=== PATIENT | male | born 1950 | race Caucasian/White ===

== ENCOUNTER 2021-06-01 12:51 | Inpatient (IN) | payer MEDICARE ==
[2021-05-31 09:43] VITALS: BMI 29.2
[~2021-06-01 12:51] MED LIST: HYDROmorphone 0.5 MG/0.5 ML SYRINGE IVP PRN; LIDOCAINE 1% (10MG/ML) FOR IV START INTRADERMA PRN; ONDANSETRON 4 MG/2 ML VIAL IVP ONE
[2021-06-01] MEDS: LACTATED RINGERS 1,000 ML IV SCH (13:50)
[2021-06-01 14:14] LABS: HGB 12.1 gm/dL (13.0-17.5); Hypochromasia Slight; MCH 30.8 pg (25.0-35.0); MCV 99.5 fL (80.0-100.0); Mean Platelet Volume 7.8; Platelet Count 179 k/uL (150-450); RBC 3.92 m/uL (4.30-5.90); WBC 6.5 k/uL (3.8-10.6)
[2021-06-01 14:43] LABS: Partial Thromboplastin Time 26.1 sec (22.0-30.0); Prothrombin Time 11.1 sec (9.0-12.0)
[2021-06-01] MEDS ORDERED: DEXTROSE 50% SYRINGE 50 ML IVP STA (20:01)
[2021-06-01] MEDS ORDERED: INSULIN REGULAR 100 UNIT/ML VIAL (IV) IV ONE (20:15)
[2021-06-01] MEDS: METOPROLOL TARTRATE 25 MG TAB PO SCH (21:01)
[2021-06-01] MEDS: traZODone HCL 50 MG TAB PO SCH (21:01)
--- NOTE | 2021-06-01 21:25 | P.HPOR ---
History of Present Illness H&P Date: 06/01/21 This patient is a 71- year old male with a past medical history of COPD, heart disease, hypertension who presented to [facility] today for a scheduled open reduction internal fixation of right bimalleolar ankle fracture. Patient was initially evaluated by Dr. Espinoza as an outpatient in the office. Surgical fixation was recommended for patient's right bimalleolar ankle fracture. Patient was placed into a bulky Raya splint and surgery was scheduled at a later date to allow for resolution of soft tissue swelling. Patient was evaluated by Dr. Tran on 05/26/21 and patient was medically cleared for surgery on that date. Upon presentation to the pre-operative area today, potassium was noted to be 6.0. Repeat potassium 5.8. Anesthesia recommended cancelling the procedure and admitting patient to the hospital for work-up of hyperkalemia. Patient has been admitted under the care of Dr. Espinoza, with an internal medicine has been consultation for hyperkalemia evaluation and treatment, as well as medical clearance prior to surgery. Patient was seen with Dr. Espinoza. Past Medical History Past Medical History: Hypertension Additional Past Medical History / Comment(s): "Heart problems, don't know what exactly." History of Any Multi-Drug Resistant Organisms: None Reported Past Surgical History: No Surgical Hx Reported Additional Past Surgical History / Comment(s): Aorta replacement 1997. Past Anesthesia/Blood Transfusion Reactions: No Reported Reaction, Motion Sickness Past Psychological History: No Psychological Hx Reported Smoking Status: Former smoker Past Alcohol Use History: None Reported Additional Past Alcohol Use History / Comment(s): Quit smoking 08/11, smoked 30+ yrs, 1ppd. Past Drug Use History: None Reported - Past Family History Mother Additional Family Medical History / Comment(s): ? lymph node cancer, not confirmed. Medications and Allergies Home Medications Medication Instructions Recorded Confirmed Type Aspirin 0.5 tab PO BID 05/31/21 05/31/21 History Famotidine [Pepcid] 20 mg PO QAM 05/31/21 05/31/21 History Furosemide [Lasix] 40 mg PO BID 05/31/21 05/31/21 History HYDROcodone/APAP 5-325MG [[place] 1 tab PO Q6HR PRN 05/31/21 05/31/21 History 5-325] Lisinopril-Hctz 20-25 mg 1 tab PO QAM 05/31/21 05/31/21 History [Zestoretic 20-25] Metoprolol 25 mg PO QAM 05/31/21 05/31/21 History Spironolactone [Aldactone] 50 mg PO DAILY 05/31/21 05/31/21 History hydroCHLOROthiazide 20 mg PO BID 05/31/21 05/31/21 History traZODone HCL 50 mg PO HS 05/31/21 05/31/21 History Allergies Allergy/AdvReac Type Severity Reaction Status Date / Time Penicillins Allergy Unknown Verified 06/01/21 13:29 venom-honey bee Allergy Anaphylaxis Verified 06/01/21 13:29 [bee venom (honey bee)] Physical Examination On examination in the pre-operative area, patient is sitting on the gurney in no apparent distress. He is alert and orientated x3. A focused examination of the right ankle is conducted. A loose bulky Raya splint was removed. On inspection of the right ankle, there are healed fracture blisters and resolved swelling. Motor and sensory function intact. The right lower extremity is warm and well perfused. Results - Labs Labs: Abnormal Lab Results - Last 24 Hours (Table) 06/01/21 06/01/21 06/01/21 Range/Units 13:49 13:49 14:44 RBC 3.92 L (4.30-5.90) m/uL Hgb 12.1 L (13.0-17.5) gm/dL Potassium 6.0 H 5.8 H (3.5-5.1) mmol/L BUN 49 H (9-20) mg/dL H & H 06/01/21 Range/Units 13:49 Hgb 12.1 L (13.0-17.5) gm/dL Hct 39.0 (39.0-53.0) % Coagulation 06/01/21 Range/Units 13:49 INR 1.0 (<1.2) Result Diagrams: 06/01/21 13:49 06/01/21 14:44 Assessment and Plan Assessment: Right ankle bimalleolar ankle fracture. Hyperkalemia. Plan: - Patient is admitted to the hospital this evening from the pre-operative area for an internal medicine consultation for hyperkalemia and medical clearance. If medically cleared, we will plan for right ankle open reduction and internal fi xation tomorrow afternoon. Patient is agreeable to this plan. - Patient will be made NPO at midnight. - A new bulky Raya splint was placed bedside this evening. Patient should remain strictly non-weight bearing right lower extremity. - We will plan for surgery tomorrow, pending medical clearance.
[2021-06-01] MEDS ORDERED: HYDROmorphone 0.5 MG/0.5 ML SYRINGE IVP STA (21:48)
--- NOTE | 2021-06-02 02:28 | P.CONS ---
History of Present Illness - Reason for Consult Consult date: 06/01/21 medical pre op eval Requesting physician: Jareth Espinoza - Chief Complaint reduction internal fixation of right bimalleolar ankle fracture. - History of Present Illness 71-year-old male with atrial fibrillation, COPD on 3 L oxygen, hypertension, valvular heart disease, Patient comes in for scheduled reduction internal fixation of right bimalleolar ankle fracture. Patient sustained an injury after tripping over his dog about 3 weeks ago. He was placed in a splint and scheduled for later surgery. Patient was cleared by his primary care physician Dr. Lopez as an outpatient however upon arrival to the hospital he was found to have hyperkalemia and surgery was canceled. Currently patient sitting at the edge of the bed comfortable denies any acute pain denies any chest pain or trouble breathing denies any fevers or chills denies any nausea vomiting abdominal pain denies any GI bleeding. He denies any recent hospitalization denies any recent symptoms suggestive of congestive heart failure or heart attack denies any palpitations or arrhythmia he has history of A. fib. Patient was active prior to surgery with heavy outdoor chores involving cutting wood and able to climb stairs with no limitations. Review of Systems Pertinent positives as noted in HPI. All other systems were reviewed and are negative Past Medical History Past Medical History: Atrial Fibrillation, COPD, Hypertension Additional Past Medical History / Comment(s): History of aortic dissection status post repair 1997 history of valvular heart disease. History of Any Multi-Drug Resistant Organisms: None Reported Past Surgical History: No Surgical Hx Reported Additional Past Surgical History / Comment(s): Aorta replacement 1997. Past Anesthesia/Blood Transfusion Reactions: No Reported Reaction, Motion Sickness Past Psychological History: No Psychological Hx Reported Smoking Status: Former smoker Past Alcohol Use History: None Reported Additional Past Alcohol Use History / Comment(s): Quit smoking 08/11, smoked 30+ yrs, 1ppd. Past Drug Use History: None Reported - Past Family History Mother Additional Family Medical History / Comment(s): ? lymph node cancer, not confirmed. Medications and Allergies Home Medications Medication Instructions Recorded Confirmed Type Aspirin 0.5 tab PO BID 05/31/21 05/31/21 History Famotidine [Pepcid] 20 mg PO QAM 05/31/21 05/31/21 History Furosemide [Lasix] 40 mg PO BID 05/31/21 05/31/21 History HYDROcodone/APAP 5-325MG [[place] 1 tab PO Q6HR PRN 05/31/21 05/31/21 History 5-325] Lisinopril-Hctz 20-25 mg 1 tab PO QAM 05/31/21 05/31/21 History [Zestoretic 20-25] Metoprolol 25 mg PO QAM 05/31/21 05/31/21 History Spironolactone [Aldactone] 50 mg PO DAILY 05/31/21 05/31/21 History hydroCHLOROthiazide 20 mg PO BID 05/31/21 05/31/21 History traZODone HCL 50 mg PO HS 05/31/21 05/31/21 History Allergies Allergy/AdvReac Type Severity Reaction Status Date / Time Penicillins Allergy Unknown Verified 06/01/21 13:29 venom-honey bee Allergy Anaphylaxis Verified 06/01/21 13:29 [bee venom (honey bee)] Physical Exam Vitals: Vital Signs Temp Pulse Resp BP Pulse Ox 06/01/21 18:11 60 18 115/56 95 06/01/21 13:41 97.3 F L 67 18 123/62 88 L Intake and Output 06/01/21 06/01/21 06/01/21 06:59 14:59 22:59 Intake Total 250 Balance 250 Intake: IV 250 Other: Weight 95 kg 95 kg Constitutional: No acute distress, conversant, pleasant Eyes: Anicteric sclerae, moist conjunctiva, Pupils equal round reactive to light ENMT: NC/AT Oropharynx clear, no erythema, or exudates Neck: Supple, FROM, no masses, or JVD No carotid bruits No thyromegaly Lungs: Clear to auscultation Clear to percussion Normal respiratory effort, no accessory muscle use Cardiovascular: Heart irregular No murmurs, gallops, or rubs No peripheral edema Abdominal: Soft Nontender, no guarding, rebound or rigidity Abdomen moving with respiration Normoactive bowel sounds No hepatomegaly, No splenomegaly No palpable mass No abdominal wall hernia noted Skin: Normal temperature, tone, texture, turgor No induration No subcutaneous nodules No rash, lesions No ulcers Extremities: No digital cyanosis No clubbing Pedal pulses intact and symmetrical Radial pulses intact and symmetrical No calf tenderness Psychiatric: Alert and oriented to person, place and time Appropriate affect fair judgement Neuro Muscles Strength 5/5 in bilateral upper and left lower extremity right lower extremity is limited due to cast Sensation to light touch grossly present throughout Cranial nerves II-XII grossly intact No focal sensory deficits Lymphatics: no palpable cervical or supraclavicular , or inguinal lymph nodes Results CBC & Chem 7: 06/01/21 13:49 06/01/21 14:44 Labs: Abnormal Lab Results - Last 24 Hours (Table) 06/01/21 06/01/21 06/01/21 Range/Units 13:49 13:49 14:44 RBC 3.92 L (4.30-5.90) m/uL Hgb 12.1 L (13.0-17.5) gm/dL Potassium 6.0 H 5.8 H (3.5-5.1) mmol/L BUN 49 H (9-20) mg/dL Assessment and Plan Assessment: Hyperkalemia Hold BRYSON inhibitor and spironolactone EKG showed no ST changes Patient given potassium lowering cocktail D50 with IV insulin Follow potassium closely Scheduled reduction internal fixation of right bimalleolar ankle fracture. Chronic conditions Hypertension COPD with chronic hypoxic is due failure on 3 L nasal cannula History of valvular heart disease and aortic dissection status post repair Resume beta blockers patient is 71 year old Male presetned with right ankle fracture. Patient denies any recent history or symptoms of congestive heart failure, mycardial infarction, syncope, arrhythmia, palpitation, or exertional dyspnea. Patient denies any past medical history of stroke, CAD, CHF, CKD, or DM. Patient is functional at baseline at >4 METs he is able to climb one or two flight of stairs with no limitations, he is able to perform heavy chores. Patient labs reviewed, EKG reviewed Patient is scheduled for orthopedic surgery to reduction internal fixation of right bimalleolar ankle fractur. This is of moderate risk, however, patient has advanced COPD with chronic hypoxic respiratory failure. Patient can proceed to surgery (contingent correction of his K abnormality) with moderate to high perioperative cardiovascular risk without any modifiable risk factors at this time . This has been explained to the patient , all questions answered, patient verbalized understanding and agreement.
[2021-06-02 02:50] LABS: African American GFR (CKD) 74 (>60 ml/min/1.73 sqM); Anion Gap 5 mmol/L; Blood Urea Nitrogen 51 mg/dL (9-20); Calcium 9.2 mg/dL (8.4-10.2); Carbon Dioxide 26 mmol/L (22-30); Chloride 105 mmol/L (98-107); Glucose 152 mg/dL (74-99); Non-African American GFR(CKD) 64 (>60 ml/min/1.73 sqM); Potassium 5.8 mmol/L (3.5-5.1); Sodium 136 mmol/L (137-145)
[2021-06-02] MEDS ORDERED: DEXTROSE 50% SYRINGE 50 ML IVP STA ×4 (04:41→22:56)
[2021-06-02] MEDS ORDERED: SODIUM POLYSTYRENE SULFONATE 15 GM/60 ML BOTTLE PO ONE ×2 (04:41→10:53)
[2021-06-02] MEDS ORDERED: INSULIN REGULAR 100 UNIT/ML VIAL (IV) IV ONE ×4 (04:41→22:56)
[2021-06-02] MEDS ORDERED: CALCIUM GLUCONATE 1 GM in SODIUM CHLORIDE 0.9% 100 ML IVPB ONE ×2 (05:00→10:51)
[2021-06-02] MEDS: LACTATED RINGERS 1,000 ML IV SCH (05:33)
[2021-06-02] MEDS: METOPROLOL TARTRATE 25 MG TAB PO SCH (09:39)
[2021-06-02] MEDS: FAMOTIDINE 20 MG TAB PO SCH (09:46)
[2021-06-02] MEDS: HYDROmorphone 0.5 MG/0.5 ML SYRINGE IVP PRN ×2 (09:58→23:25)
[2021-06-02] MEDS ORDERED: IPRATROPIUM-ALBUTEROL 3 ML NEB INHALATION PRN (10:15)
--- NOTE | 2021-06-02 10:19 | P.PN ---
<Kanu Delgado - Last Filed: 06/02/21 09:59> Subjective Progress Note Date: 06/02/21 Hospital course: Patient is a very pleasant 71-year-old male with a past medical history of at rial fibrillation, hypertension, CAD with stents, and COPD home oxygen dependent on 3 L at all times. Patient currently admitted as he was scheduled to undergo an elective open reduction internal fixation of right bimalleolar ankle fracture status post injury obtained by tripping over his dog approximately 3 weeks ago. Upon admission to hospital and prior to surgical procedure patient was found to have hyperkalemia and electrolyte surgery was postponed at that time. We have been consulted for continued close medical management and treatment of hyperkalemia. Physical exam: Patient was seen and fully evaluated at the bedside this morning. He reports mild pain of right leg/ankle but denies having any other complaints at this time. Patient denies history of having hyperkalemia. He denies having any headache, lightheadedness, dizziness, chest pain, palpitations, shortness of breath, increased dyspnea with exertion, or experiencing any numbne ss/tingling/weakness at this time. STAT orders placed for Vital signs reviewed and stable. General: Nontoxic, no distress and appears stated age. Derm: Skin warm and dry, normal coloration for ethnicity. Head: Atraumatic, normocephalic and symmetric. Eyes: EOMs intact, no lid lag, and anicteric sclera Mouth: no lip lesions, mucus membranes moist Cardiovascular: regular rate and rhythm with normal S1S2, no murmur, positive posterior tibial pulses bilaterally, and cap refill < 2 seconds. Lungs: Respirations even, regular, and unlabored on 3L O2 via NC. Lungs slightly diminished with no rhonchi, no rales, no wheezing, and no accessory muscle usage. Abdominal: soft, nontender to palpation, no guarding, no appreciable organomegaly Ext: No gross muscle atrophy, no edema, no contractures. Right lower extremity in an orthopedic leg splint Neuro: Speech clear, face symmetrical and CN II-XII grossly intact with no noted focal neuro deficits Psych: Alert and oriented to person, place, time, and situation. Appropriate and pleasant affect. Assessment and Plan of Care: Hyperkalemia with EKG changes -Hold BRYSON inhibitor and Aldactone -Hyperkalemia cocktail including calcium gluconate, 10 units regular insulin and 1 amp of D50, and Kayexalate was given awaiting repeat lab results. -Continuous telemetry monitoring -Cardiology eval for new inferior T wave inversion Right bimalleolar ankle fracture -Initial plans was for elective open reduction internal fixation of right bimalleolar ankle fracture -Pain management and symptomatic treatment. -Fall precautions -Management per primary admitting orthopedic team including DVT prophylaxis, weightbearing, pain management, and PT/OT. COPD -Continue oxygenation to maintain SpO2 equal to or greater than 90%. Baseline oxygen 3 L via nasal cannula at all times. -Encourage use of incentive spirometry. -DuoNeb's as needed for wheezing and/or shortness of breath Thank you for allowing us to participate in the care of this pleasant patient. Do not hesitate to contact us with questions. Someone can be reached from the [facility] hospitalist group all hours of the day at [phone] or via perfect serve. Objective - Vital Signs Vital signs: Vital Signs Temp 97.2 F L 06/02/21 00:55 Pulse 57 L 06/02/21 00:55 Resp 15 06/02/21 00:55 BP 103/78 06/02/21 00:55 Pulse Ox 99 06/02/21 00:55 Intake & Output 06/01/21 06/02/21 06/02/21 18:59 06:59 18:59 Intake Total 250 Output Total 300 Balance 250 -300 Weight 95 kg Intake: IV 250 Output: Urine 300 - Labs CBC & Chem 7: 06/01/21 13:49 06/02/21 01:44 Labs: Abnormal Lab Results - Last 24 Hours (Table) 06/01/21 06/01/21 06/01/21 Range/Units 13:49 13:49 14:44 RBC 3.92 L (4.30-5.90) m/uL Hgb 12.1 L (13.0-17.5) gm/dL Sodium (137-145) mmol/L Potassium 6.0 H 5.8 H (3.5-5.1) mmol/L BUN 49 H (9-20) mg/dL Glucose (74-99) mg/dL 06/02/21 Range/Units 01:44 RBC (4.30-5.90) m/uL Hgb (13.0-17.5) gm/dL Sodium 136 L (137-145) mmol/L Potassium 5.8 H (3.5-5.1) mmol/L BUN 51 H (9-20) mg/dL Glucose 152 H (74-99) mg/dL <LeighaKatelyn A - Last Filed: 06/02/21 14:07> Subjective Patient seen and examined independently. Patient was also seen by Kanu Delgado NP and case was discussed. I am in agreement with subjective, physical exam, assessment and plan as written above and amended below. Pain is better controlled. No chest pain or shortness of breath. General: non toxic, no distress, appears at stated age Derm: warm, dry Head: atraumatic, normocephalic, symmetric Eyes: EOMI, no lid lag, anicteric sclera Mouth: no lip lesion, mucus membranes moist Cardiovascular: S1S2 reg, no murmur, positive posterior tibial pulse bilateral, Lungs: Decreased bs bilateral, no rhonchi, no rales , no accessory muscle use Abdominal: soft, nontender to palpation, no guarding, no appreciable organomegaly Ext: no gross muscle atrophy, no edema, no contractures Psych: Alert, oriented, appropriate affect He continues to have hyperkalemia. He appears euvolemic. We'll continue to hold BRYSON inhibitor and Aldactone. Give him calcium gluconate, insulin, glucose, 2 L of IV fluid, and a dose of Lasix. Recheck potassium. Objective - Vital Signs Vital signs: Vital Signs Temp 98.2 F 06/02/21 08:00 Pulse 61 06/02/21 08:00 Resp 18 06/02/21 08:00 BP 98/54 06/02/21 08:00 Pulse Ox 99 06/02/21 08:00 Intake & Output 06/01/21 06/02/21 06/02/21 18:59 06:59 18:59 Intake Total 250 Output Total 300 Balance 250 -300 Weight 95 kg Intake: IV 250 Output: Urine 300 Other: Voiding Method Urinal - Labs CBC & Chem 7: 06/01/21 13:49 06/02/21 09:17 Labs: Abnormal Lab Results - Last 24 Hours (Table) 06/01/21 06/01/21 06/01/21 Range/Units 13:49 13:49 14:44 RBC 3.92 L (4.30-5.90) m/uL Hgb 12.1 L (13.0-17.5) gm/dL Sodium (137-145) mmol/L Potassium 6.0 H 5.8 H (3.5-5.1) mmol/L BUN 49 H (9-20) mg/dL Glucose (74-99) mg/dL 06/02/21 06/02/21 Range/Units 01:44 09:17 RBC (4.30-5.90) m/uL Hgb (13.0-17.5) gm/dL Sodium 136 L (137-145) mmol/L Potassium 5.8 H 6.1 H* (3.5-5.1) mmol/L BUN 51 H 49 H (9-20) mg/dL Glucose 152 H (74-99) mg/dL
[2021-06-02 10:27] LABS: African American GFR (CKD) 81 (>60 ml/min/1.73 sqM); Anion Gap 8 mmol/L; Blood Urea Nitrogen 49 mg/dL (9-20); Calcium 10.2 mg/dL (8.4-10.2); Carbon Dioxide 24 mmol/L (22-30); Chloride 106 mmol/L (98-107); Glucose 87 mg/dL (74-99); Non-African American GFR(CKD) 70 (>60 ml/min/1.73 sqM); Sodium 138 mmol/L (137-145)
[2021-06-02 10:33] LABS: Potassium 6.1 mmol/L (3.5-5.1)
[2021-06-02] MEDS ORDERED: FUROSEMIDE 10 MG/ML 4 ML VIAL IV STA (11:33)
[2021-06-02] MEDS ORDERED: SODIUM CHLORIDE 0.9% 2,000 ML IV ONE (11:33)
--- NOTE | 2021-06-02 12:39 | CONS ---
CONSULTATION Mr. Shaw is a 71-year-old male with known history of ascending aortic dissection, status post repair in 1997, history of hypertension, prior history of smoking, history of chronic persistent atrial fibrillation who presented to the hospital after fractured right ankle after tripping over his dog. Cardiology consultation was requested because of hyperkalemia and abnormal EKG. The patient stopped smoking in July of this year. He has no significant dyspnea or chest pain. No palpitations. He is not aware of the irregular heartbeat. He has no clear PND or orthopnea. His level of activity, according to him, has been stable. He has a history of hypertension and in the past had an issue with controlling his blood pressure. He has declined anticoagulation in the past for the atrial fibrillation. The patient had a remote history of chronic alcohol intake but has not had a drink in a long time. He has no history of documented obstructive coronary artery disease. His coronary risk factors are remarkable for the hypertension and prior history of smoking. His medication at home includes Aldactone 50 mg daily, hydrochlorothiazide, Lasix 40 mg twice a day, aspirin, trazodone, metoprolol, Zestoretic and hydrocodone. On the monitor he is in atrial fibrillation with episodes of slow ventricular response and pauses up to 2.3 seconds. REVIEW OF SYSTEMS: RESPIRATORY SYSTEM: He has no history of recent wheezing or cough. He has prior history of smoking. GI SYSTEM: No recent GI bleeding. No peptic ulcer disease. SYSTEM: No dysuria or hematuria. NERVOUS SYSTEM: No stroke or seizure. PHYSICAL EXAMINATION: He is a 71-year-old male, alert, oriented, in no apparent distress. Blood pressure running in the 100s with a heart rate in the 50s. HEAD: Normocephalic. EYES: Sclerae anicteric. NECK: Good carotid upstroke. No bruit. LUNGS: Clear to auscultation. HEART: Irregularly irregular. S1, S2. No S3. With systolic ejection murmur 2/6, heard at the base. No diastolic murmur. No rub. ABDOMEN: Soft, nontender. Positive bowel sounds. No organomegaly. EXTREMITIES: No edema on the left side. Right side with cast in place. The patient underwent the ascending aortic repair at [facility] for type 1 dissection. His echocardiogram in 2009 showed a preserved systolic function with moderate aortic regurgitation. He had no evidence of stress-induced ischemia in the past. LAB DATA: BUN and creatinine 51 and 1.16 this morning. His potassium is 5.8. It was 6.0 yesterday. His hemoglobin is 12.1. EKG revealed atrial fibrillation with T-wave inversion inferiorly and peaked T-waves in the anterior precordial leads. IMPRESSION: 1. Fall and fracture of the right ankle. 2. Chronic persistent atrial fibrillation. 3. Hyperkalemia. 4. Hypertension. 5. Status post repair of the ascending aortic dissection type 1 in 1997. 6. Prior history of smoking. RECOMMENDATIONS: I will hold his beta derrick at this time because of the pauses. I will obtain echocardiogram with Doppler. If there is no evidence of segmental wall motion abnormality and his potassium returns to baseline, then he should be able to proceed with his surgical intervention. Thank you for this consult. Will follow with you. SANTIAGOL / IJN: [id number] /
--- NOTE | 2021-06-02 13:44 | ECHOF ---
Referral Reason:LV function MEASUREMENTS -------- HEIGHT: 180.3 cm WEIGHT: 94.8 kg BP: 103/78 RVIDd: 4.7 cm (< 3.3) IVSd: 1.8 cm (0.6 - 1.1) LVIDd: 4.7 cm (3.9 - 5.3) LVPWd: 1.5 cm (0.6 - 1.1) IVSs: 2.7 cm LVIDs: 3.4 cm LVPWs: 2.5 cm LAESV Index (A-L): 196.35 ml/m Ao Diam: 3.4 cm (2.0 - 3.7) AV Cusp: 2.3 cm (1.5 - 2.6) LA Diam: 7.5 cm (2.7 - 3.8) MV EXCURSION: 23.423 mm (> 18.000) MV EF SLOPE: 114 mm/s (70 - 150) EPSS: 0.6 cm AR PHT: 566 ms RAP: 5.00 mmHg RVSP: 40.13 mmHg FINDINGS -------- Atrial fibrillation. This was a technically adequate study. The left ventricular size is normal. There is severe concentric left ventricular hypertrophy. Ove rall left ventricular systolic function is normal with, an EF between 55 - 60 %. Septal wall motion is delayed and consistent with prior cardiac surgery. The right ventricle is severely enlarged. LA is severely dilated >40 ml/m2 The right atrium is markedly enlarged. Interatrial and interventricular septum intact. The aortic valve is trileaflet and appears structurally normal. There is moderate aortic regurgitat ion. There is no evidence of aortic stenosis. The mitral valve is normal. Moderate mitral regurgitation is present. The tricuspid valve appears structurally normal. Moderate tricuspid regurgitation present. There is mild pulmonary hypertension. The right ventricular systolic pressure, as measured by Doppler, is 40.13mmHg. There is no pulmonic regurgitation present. 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 s/p aorrtic repair IVC Not well visulized. There is no pericardial effusion. CONCLUSIONS -------- 1. Atrial fibrillation. 2. There is severe concentric left ventricular hypertrophy. 3. Overall left ventricular systolic function is normal with, an EF between 55 - 60 %. 4. The right ventricle is severely enlarged. 5. LA is severely dilated >40 ml/m2 6. The right atrium is markedly enlarged. 7. There is moderate aortic regurgitation. 8. Moderate mitral regurgitation is present. 9. Moderate tricuspid regurgitation present. 10. There is mild pulmonary hypertension. 11. 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 TEST ENGINEER: Gema Denis RDCS
[2021-06-02 16:32] LABS: African American GFR (CKD) 86 (>60 ml/min/1.73 sqM); Anion Gap 8 mmol/L; Blood Urea Nitrogen 44 mg/dL (9-20); Calcium 9.5 mg/dL (8.4-10.2); Carbon Dioxide 21 mmol/L (22-30); Chloride 111 mmol/L (98-107); Glucose 203 mg/dL (74-99); Non-African American GFR(CKD) 74 (>60 ml/min/1.73 sqM); Sodium 140 mmol/L (137-145)
[2021-06-02 16:41] LABS: Potassium 6.4 mmol/L (3.5-5.1)
[2021-06-02] MEDS ORDERED: SODIUM POLYSTYRENE SULFONATE 15 GM/60 ML BOTTLE PO STA (17:09)
[2021-06-02] MEDS ORDERED: SODIUM BICARB 8.4% 50 ML SYR (1 MEQ/ML) IV STA (17:12)
[2021-06-02] MEDS ORDERED: DEXTROSE 5% IN WATER 1,000 ML with SODIUM BICARB (1 MEQ/ML) 50 ML IV SCH (17:15)
[2021-06-02] MEDS ORDERED: CALCIUM GLUCONATE 2 GM in SODIUM CHLORIDE 0.9% 100 ML IVPB ONE (17:45)
--- NOTE | 2021-06-02 19:20 | P.PN ---
Progress Note - Text Progress Note Date: 06/02/21 Right ankle ORIF was canceled for this afternoon per anesthesia, as patient's potassium continues to rise, last potassium resulted at 6.4. We will continue to follow patient and tentatively plan for surgery tomorrow morning, pending medical clearance.
[2021-06-02] MEDS: traZODone HCL 50 MG TAB PO SCH (20:02)
[2021-06-02 22:50] LABS: African American GFR (CKD) 87 (>60 ml/min/1.73 sqM); Anion Gap 6 mmol/L; Blood Urea Nitrogen 41 mg/dL (9-20); Calcium 9.4 mg/dL (8.4-10.2); Carbon Dioxide 30 mmol/L (22-30); Chloride 101 mmol/L (98-107); Creatine Kinase 23 U/L (55-170); Glucose 122 mg/dL (74-99); Non-African American GFR(CKD) 75 (>60 ml/min/1.73 sqM); Potassium 5.3 mmol/L (3.5-5.1); Sodium 137 mmol/L (137-145)
[2021-06-03] MEDS: LACTATED RINGERS 1,000 ML IV SCH (06:21)
[2021-06-03 08:31] LABS: African American GFR (CKD) >90 (>60 ml/min/1.73 sqM); Anion Gap 7 mmol/L; Blood Urea Nitrogen 30 mg/dL (9-20); Calcium 9.6 mg/dL (8.4-10.2); Carbon Dioxide 29 mmol/L (22-30); Chloride 104 mmol/L (98-107); Glucose 112 mg/dL (74-99); Non-African American GFR(CKD) 83 (>60 ml/min/1.73 sqM); Potassium 5.1 mmol/L (3.5-5.1); Sodium 140 mmol/L (137-145)
[2021-06-03] MEDS ORDERED: KETAMINE 10 MG/ML 20 ML VIAL ONE (09:23)
[2021-06-03] MEDS ORDERED: fentaNYL (PF) 50 MCG/ML 2 ML AMP ONE (09:23)
[2021-06-03] MEDS ORDERED: MIDAZOLAM 2 MG/2 ML VIAL ONE (09:23)
[2021-06-03] MEDS ORDERED: SODIUM CHLORIDE 0.9% 1,000 ML IV ONE (09:28)
[2021-06-03] MEDS ORDERED: ceFAZolin 3,000 MG in SODIUM CHLORIDE 0.9% IRRIGATIO 3,000 ML IRRIGATION ONE (10:09)
[2021-06-03] MEDS ORDERED: LACTATED RINGERS 1,000 ML IV ONE (10:20)
[2021-06-03] MEDS: HYDROmorphone 0.5 MG/0.5 ML SYRINGE IVP PRN ×2 (12:10→12:44)
--- NOTE | 2021-06-03 12:16 | P.OP ---
Date of Procedure: 06/03/21 Preoperative Diagnosis: 1. Displaced right bimalleolar ankle fracture Postoperative Diagnosis: 1. Displaced right bimalleolar ankle fracture 2. Ruptured syndesmosis right ankle Procedure(s) Performed: 1. Open reduction with internal fixation of right bimalleolar ankle fracture 2. Open reduction syndesmosis right ankle Implants: 130 mm X 3 mm Arthrex Fibulock nail 3.5 mm solid cortical screw Arthrex Tightrope Anesthesia: spinal Surgeon: Aravind Angeles Food And Nutrition Supervisor #1: Jareth Espinoza Estimated Blood Loss (ml): 5 Pathology: none sent Condition: stable Disposition: PACU Indications for Procedure: Unstable displaced right ankle bimalleolar ankle fracture Description of Procedure: Spinal anesthesia was administered to the patient. The patient was brought into the operating room placed on table supine position. Timeout was taken to confirm correct patient identifiers, correct site of surgery and correct procedure. When all staff was in agreement the patient was placed under light sedated anesthesia. A well-padded tourniquet was placed on the right thigh. A bump was placed underneath the right hip to internally rotate the right leg. The right leg was then prepped and draped usual manner. The right leg was exsanguinated and the tourniquet inflated to 350 mmHg. Under fluoroscopic visualization a closed reduction was attempted of the lateral malleolar fracture. However the fracture was unable to be reduced therefore small incision was made over the fracture site. Interposing soft tissue was freed as well as any callus formation. Once the soft tissue was released clamp was placed around the fracture and was able to be brought back out to length and reduced to normal alignment. The clamp was left in place to maintain the alignment. Small stab incision was made to this skin proximally one-to-one centimeters distal to the tip of the lateral malleolus. A guidewire for the fibular lock nail was then inserted at the tip of the lateral malleolus and advanced through the medullary canal under direct fluoroscopic visualization. The position of the wire was correct both on the AP and lateral views. Then the large broach was used for the distal drilling. And with the guidewire still in place the reamer was then placed into the fibula and reamed to proper depth. The fibular lock nail was inserted into the drill hole after the guidewire was removed and impacted to proper depth. A wire was placed through the alignment jig to lock it in position. At that point the transit driver was inserted on the distal aspect of the jig and the talons deployed until locked into position at the superior aspect of the nail. The distal screws were placed into the fibula and through the fibular lock nail first. To lateral screws and 1 anterior to posterior screw were placed. These were also done under fluoroscopic visualization so that the screws did not enter the lateral gutter of the ankle joint. Once that was completed the drill guide for the syndesmosis fixation was placed through the jig. Small stab incision was made through the skin and then the area drilled for the insertion of the syndesmotic excision was made from lateral to medial. Again fluoroscopic visualization was utilized to follow the course of the drill until it pierced the medial cortex of the tibia. The drill was removed and then the Arthrex tight rope was inserted until the button was clear of the medial cortex. The button was deployed and then tension placed on the insertion device to place the button flat against medial side of the tibia once that was completed the bicycle service technician was removed and then with the ankle maximally dorsiflexed the lateral side of the syndesmotic fixation was then tightened until the button rested against the lateral malleolus. Or scopic imaging was then used to assess the overall position of the syndesmotic fixation as well as to do stress testing of the syndesmosis which showed no abnormal movement. Then attention was directed over the medial malleolus were 2 small incisions made, one at the tip of the medial malleolus one several centimeters superior for the placement of the reduction clamp. The reduction clamp was put into position and used to stabilize the fracture. Fluoroscopy showed that the fracture was well aligned. Then a hole was drilled for 3.5 mm solid screw from the tip of the medial malleolus and angled into the tibia avoiding the ankle joint. The 3.5 mm screw was then inserted and tightened until a compressed the fracture and the head engaged the medial malleolus. The clamp was removed and then fluoroscopic imaging was used to assess the overall alignment ankle. Fibular length was restored ankle mortise was opened symmetrical and there was no normal gapping of the medial or lateral gutter. The wounds were thoroughly irrigated with antibiotic saline. Any deep closure was done with 0 Vicryl. Subcu closure done for Monocryl. Skin closure done with nylon. An Arthrex jumpstart dressing was placed over all the incisions and then a large bulky dressing was applied to the right leg. The tourniquet was released and capillary refill return to all digits on the right foot. Then a well molded, well-padded plaster posterior mold/sugar tong splint was applied to the right lower extremity and secured in place. Ankle was held in neutral position with the knee bent until dried. The patient tolerated the above procedure and anesthesia well which recovery with vital signs stable
[2021-06-03] MEDS: FAMOTIDINE 20 MG TAB PO SCH (12:44)
[2021-06-03] MEDS: HYDROcodone/APAP 7.5-325MG 1 EACH TAB PO PRN ×2 (15:07→20:54)
--- NOTE | 2021-06-03 15:42 | XR ---
Right ankle. HISTORY: Fluoroscopic spot films intraoperatively for open reduction internal fixation of a right ank le fracture. COMPARISON: 06/03/2021 TECHNIQUE: 4 intraoperative fluoroscopic spot views of the right ankle were obtained demonstrating op en reduction internal fixation of a bimalleolar fracture. Findings: The ankle mortise is intact and there appears to be near anatomic alignment.
[2021-06-03 19:26] VITALS: RESP 18
[2021-06-03] MEDS: traZODone HCL 50 MG TAB PO SCH (20:15)
[2021-06-04] MEDS: HYDROcodone/APAP 7.5-325MG 1 EACH TAB PO PRN ×2 (03:08→09:17)
[2021-06-04] MEDS: LACTATED RINGERS 1,000 ML IV SCH (06:02)
[2021-06-04 07:36] VITALS: BP 136/65; PULSE 70; TEMP 97.4
--- NOTE | 2021-06-04 08:50 | P.PN ---
Subjective Doing well. Pain controlled. Denies CP/SOB. Objective - Vital Signs Vital signs: Vital Signs Temp 97.4 F L 06/04/21 07:35 Pulse 70 06/04/21 07:35 Resp 18 06/04/21 07:35 BP 136/65 06/04/21 07:35 Pulse Ox 96 06/04/21 07:35 Intake & Output 06/03/21 06/04/21 06/04/21 18:59 06:59 18:59 Intake Total 1251 Output Total 5 950 Balance 1246 -950 Intake: IV 1251 Output: Urine 950 Estimated Blood Loss 5 Other: Voiding Method Urinal # Voids 1,000 - Exam NAD, AAO4 LEFT LE: splint c/d/i. Toes warm and well-perfused with brisk CR. Moves toes up/down. SILT toes. - Labs CBC & Chem 7: 06/01/21 13:49 06/03/21 08:08 Assessment and Plan Plan: POD#1 s/p ankle ORIF with fibulock nail and percutaneous fixation medial malleolus 1. NWB operative extremity in splint, ice/elevate 2. Post-op antibiotics 3. DVT prophylaxis with ASA 4. Ok to discharge home from orthopaedic standpoint when medically cleared 5. Follow-up in the office in 10-[address] Angeles
[2021-06-04 08:56] LABS: Basophils % (A) 1 %; Eosinophils # (A) 0.5 k/uL (0-0.7); Eosinophils % (A) 11 %; HCT 38.1 % (39.0-53.0); HGB 11.5 gm/dL (13.0-17.5); Hypochromasia Moderate; Lymphocytes # (A) 0.7 k/uL (1.0-4.8); Lymphocytes % (A) 14 %; MCH 30.6 pg (25.0-35.0); MCHC 30.1 g/dL (31.0-37.0); MCV 101.8 fL (80.0-100.0); Macrocytosis Slight; Monocytes # (A) 0.3 k/uL (0-1.0); Monocytes % (A) 7 %; Neutrophils # (A) 3.2 k/uL (1.3-7.7); Neutrophils % (A) 66 %; Platelet Count 131 k/uL (150-450); RBC 3.74 m/uL (4.30-5.90); RDW 13.7 % (11.5-15.5); WBC 4.9 k/uL (3.8-10.6)
[2021-06-04 09:04] LABS: African American GFR (CKD) >90 (>60 ml/min/1.73 sqM); Anion Gap 5 mmol/L; Blood Urea Nitrogen 18 mg/dL (9-20); Calcium 9.6 mg/dL (8.4-10.2); Carbon Dioxide 32 mmol/L (22-30); Chloride 101 mmol/L (98-107); Glucose 108 mg/dL (74-99); Non-African American GFR(CKD) >90 (>60 ml/min/1.73 sqM); Potassium 4.9 mmol/L (3.5-5.1); Sodium 138 mmol/L (137-145)
[2021-06-04] MEDS: FAMOTIDINE 20 MG TAB PO SCH (09:17)
--- NOTE | 2021-06-04 11:38 | P.DS ---
Providers Date of admission: 06/01/21 18:29 Attending physician: Vinay Osborn Consults: 06/01/21 18:36 Consult Physician Stat Consulting Provider: Jareth Espinoza Consult Reason/Comments: medical clearance pre-op Do you want consulting provider notified?: Yes 06/02/21 04:54 Consult Physician Routine Consulting Provider: Wyatt Burnham Consult Reason/Comments: inferior leads T wave inversion Do you want consulting provider notified?: Yes, Notify in am Primary care physician: [facility] Course: Patient is a very pleasant 71-year-old male with a past medical history of atrial fibrillation, hypertension, CAD with stents, and COPD home oxygen dependent on 3 L at all times. Patient currently admitted as he was scheduled to undergo an elective open reduction internal fixation of right bimalleolar ankle fracture status post injury obtained by tripping over his dog approximately 3 weeks ago. Upon admission to hospital and prior to surgical procedure patient was found to have hyperkalemia and electrolyte surgery was postponed at that time. We have been consulted for continued close medical management and treatment of hyperkalemia. 06/04: Patient is postop day 1. He is found sitting up in a chair. Patient states that he is going to go home today to matter what. He is refusing any assistance at home. Patient states that he has a neighbor who will be able to help him. He has a cane walker and wheelchair at home. He has been utilizing a wheelchair since before his surgery. Patient does have [place] at home however we will give him a prescription for less than 3 days. His potassium is 4.9 today. Discharge diagnosis: 1. Hyperkalemia with EKG changes 2. Status post reduction of internal fixation of right bimalleolar ankle fracture 3. COPD with chronic hypoxic 4. Hypertension 5. Valvular heart disease and aortic dissection status post repair Discharge disposition: Home with self-care, patient declined home care Impression and plan of care have been directed as dictated by the signing physician. Lizzie Trejo nurse practitioner acting as scribe for signing physician. Plan - Discharge Summary Discharge Rx Participant: No New Discharge Prescriptions: New HYDROcodone/APAP 7.5-325MG [[place] 7.5-325] 1 tab PO Q6HR PRN 3 Days #12 tab PRN Reason: Pain Continue traZODone HCL 50 mg PO HS Spironolactone [Aldactone] 50 mg PO DAILY Furosemide [Lasix] 40 mg PO BID hydroCHLOROthiazide 20 mg PO BID Lisinopril-Hctz 20-25 mg [Zestoretic 20-25] 1 tab PO QAM Famotidine [Pepcid] 20 mg PO QAM Aspirin 0.5 tab PO BID Discontinued HYDROcodone/APAP 5-325MG [[place] 5-325] 1 tab PO Q6HR PRN PRN Reason: Pain Metoprolol 25 mg PO QAM Discharge Medication List Aspirin 0.5 tab PO BID 05/31/21 [History] Famotidine [Pepcid] 20 mg PO QAM 05/31/21 [History] Furosemide [Lasix] 40 mg PO BID 05/31/21 [History] Lisinopril-Hctz 20-25 mg [Zestoretic 20-25] 1 tab PO QAM 05/31/21 [History] Spironolactone [Aldactone] 50 mg PO DAILY 05/31/21 [History] hydroCHLOROthiazide 20 mg PO BID 05/31/21 [History] traZODone HCL 50 mg PO HS 05/31/21 [History] HYDROcodone/APAP 7.5-325MG [[place] 7.5-325] 1 tab PO Q6HR PRN 3 Days #12 tab 06/04/21 [Rx] Follow up Appointment(s)/Referral(s): Aravind Angeles DPM [Doctor of Osteopathic Medicine] - 2 Weeks Leobardo Queen MD [Primary Care Provider] - 1-2 Days (PLEASE CALL FOR AN APPOINTMENT TO FOLLOW UP WITH YOUR PRIMARY CARE DOCTOR TOMORROW TO DISCUSS ELEVATED POTASSIUM LEVEL) Patient Instructions/Handouts: ORIF (DC) Activity/Diet/Wound Care/Special Instructions: 1. STRICT NON-WEIGHT BEARING on your operative leg 2. Use crutches to ambulate 3. Ice and elevate 4. Take Aspirin 81 mg BID for 2 weeks to lower your risk of blood clot 5. Take a stool softener while taking narcotic pain medications 6. Follow-up in 10-14 days 7. Do not remove your splint PLEASE CALL YOUR DOCTORS TOMORROW (06/02/21) TO DISCUSS POTASSIUM, MEDICATIONS, AND PLAN FOR SURGERY PLEASE TELL DR. QUEEN'S OFFICE THAT YOU NEED TO BE SEEN SOON POSSIBLY, HOPEFUL SAME DAY APPOINTMENT. Discharge Disposition: Left Against Medical Advice
== END 2021-06-04 12:36 | disposition home or self-care (01) | DRG 493 ==
LOC: OR 12:51 → 4SSUR 18:29
PROVIDERS: ADMIT Internal Medicine Geriatric Medicine; ATTEND Internal Medicine Geriatric Medicine
PROC: 0QSJ04Z Reposition Right Fibula with Internal Fixation Device, Open Approach (ICD-10-PCS; principal; 2021-06-01)
PROC: 0QSG04Z Reposition Right Tibia with Internal Fixation Device, Open Approach (ICD-10-PCS; 2021-06-01)
PROC: 0SSF0ZZ Reposition Right Ankle Joint, Open Approach (ICD-10-PCS; 2021-06-01)
PROC: 8E0WXBF Computer Assisted Procedure of Trunk Region, With Fluoroscopy (ICD-10-PCS; 2021-06-01)
DX: S82.841A Displaced bimalleolar fracture of right lower leg, initial encounter for closed fracture (principal); I48.19 Other persistent atrial fibrillation; J96.11 Chronic respiratory failure with hypoxia; I49.5 Sick sinus syndrome; I25.10 Atherosclerotic heart disease of native coronary artery without angina pectoris; Z20.822 Contact with and (suspected) exposure to COVID-19; E87.5 Hyperkalemia; I10 Essential (primary) hypertension; J44.9 Chronic obstructive pulmonary disease, unspecified; W01.0XXA Fall on same level from slipping, tripping and stumbling without subsequent striking against object, initial encounter; Z79.899 Other long term (current) drug therapy; Z87.891 Personal history of nicotine dependence; Z95.5 Presence of coronary angioplasty implant and graft; Z99.81 Dependence on supplemental oxygen; Z91.030 Bee allergy status; Z88.0 Allergy status to penicillin; Z86.79 Personal history of other diseases of the circulatory system
CPT/HCPCS: 80048; 82550; 84132; 85025; 85027; 85610; 85730; 87635; 93005; 93306; 94760